=== PATIENT | male | born 1970 | race Hispanic/Latino ===

== ENCOUNTER 2017-06-06 18:46 | Observation (INO) | payer SELFPAY ==
[~2017-06-06] VITALS: Ht 167.6 cm; Wt 86.0 kg
[2017-06-06 20:18] LABS: HEMATOCRIT 42.3 % (39.0-50.0); HEMOGLOBIN 14.4 g/dl (14.0-18.0); IMMATURE GRANULOCYTES 0.4 % (0.0-1.0); MEAN CELL VOLUME 87.4 fL CALC (80.0-100.0); MEAN CORPUSCULAR HGB 29.8 pG CALC (26.0-32.0); NEUT# 9.06 thou/uL (1.82-7.42); RED BLOOD COUNT 4.84 mill/uL (4.70-6.10); RED CELL DISTRI WIDTH 12.7 % (11.5-15.5)
[2017-06-06 20:18] LABS: URINE BILIRUBIN - DIPSTICK NEGATIVE (NEGATIVE); URINE BLOOD DIPSTICK NEGATIVE (NEGATIVE); URINE COLOR YELLOW; URINE GLUCOSE - DIPSTICK NEGATIVE (NEGATIVE); URINE KETONE NEGATIVE (NEGATIVE); URINE LEUK ESTERASE NEGATIVE (NEGATIVE); URINE NITRITE - DIPSTICK NEGATIVE (Negative); URINE PROTEIN - DIPSTICK NEGATIVE (NEG-TRACE); URINE UROBILINOGEN - DIPSTICK 0.2 E.U./dL (0.2)
[2017-06-06 20:21] LABS: URINE CLARITY CLEAR
[2017-06-06 20:27] LABS: ALBUMIN 4.7 g/dL (3.2-5.0); ALKALINE PHOSPHATASE 81 u/l (38-126); ANION GAP 17 (6-22 (CALC)); BILIRUBIN, TOTAL 0.5 mg/dL (0.0-1.4); BUN 14 mg/dL (9-20); BUN/CREATININE RATIO 14 (12-20 (CALC)); CALCIUM 9.9 mg/dL (8.4-10.2); CARBON DIOXIDE 26 mmol/l (22-30); CHLORIDE 102 mmol/l (95-108); GFR > 60 ML/MIN (>=60 (CALC)); GFR FOR AFR.AMER. > 60 ML/MIN (>=60 (CALC)); GLUCOSE 106 mg/dL (75-110); POTASSIUM 4.2 mmol/l (3.5-5.1); SGOT/AST 39 u/l (17-59); SGPT/ALT 57 u/l (21-72); SODIUM 140 mmol/l (137-146); TOTAL PROTEIN 7.9 g/dL (6.3-8.2)
[2017-06-06 22:10] VITALS: BP 101/59
[2017-06-07 04:32] VITALS: BP 132/78
[2017-06-07 08:56] VITALS: BP 110/66
[2017-06-07 16:22] VITALS: BP 125/72
[2017-06-07 19:25] VITALS: BP 90/51
[2017-06-08 00:09] VITALS: BP 116/76
[2017-06-08 05:26] VITALS: BP 109/63
[2017-06-08 06:04] LABS: HEMATOCRIT 40.6 % (39.0-50.0); HEMOGLOBIN 13.7 g/dl (14.0-18.0); IMMATURE GRANULOCYTES 0.3 % (0.0-1.0); MEAN CELL VOLUME 88.1 fL CALC (80.0-100.0); MEAN CORPUSCULAR HGB 29.7 pG CALC (26.0-32.0); MEAN CORPUSCULAR HGB CONC 33.7 g/L CALC (32.0-36.0); NEUT# 5.72 thou/uL (1.82-7.42); RED BLOOD COUNT 4.61 mill/uL (4.70-6.10); RED CELL DISTRI WIDTH 13.1 % (11.5-15.5)
[2017-06-08 06:20] LABS: ANION GAP 15 (6-22 (CALC)); BUN 13 mg/dL (9-20); BUN/CREATININE RATIO 13 (12-20 (CALC)); CALCIUM 9.6 mg/dL (8.4-10.2); CARBON DIOXIDE 25 mmol/l (22-30); CHLORIDE 107 mmol/l (95-108); GFR > 60 ML/MIN (>=60 (CALC)); GFR FOR AFR.AMER. > 60 ML/MIN (>=60 (CALC)); GLUCOSE 111 mg/dL (75-110); MAGNESIUM 2.2 mg/dL (1.6-2.3); POTASSIUM 4.5 mmol/l (3.5-5.1); SODIUM 143 mmol/l (137-146)
[2017-06-08 08:23] VITALS: BP 116/62
[2017-06-08] MEDS ORDERED: BACTRIM DS1 TAB PO (13:51)
[2017-06-08] MEDS ORDERED: TRAMADOL HCL50 MG PO (13:51)
== END 2017-06-08 14:20 | disposition home or self-care (01) | DRG 603 ==
LOC: ED 18:46 → ED-I 21:00 → ED 21:29 → MS2 21:30
PROVIDERS: Emergency Medicine; Nurse Practitioner Family; ADMIT Internal Medicine; ATTEND Internal Medicine
DX: L03.116 Cellulitis of left lower limb (principal); B35.3 Tinea pedis
CPT/HCPCS: G0378; J1650; J3370